=== PATIENT | female | born 2005 | race Caucasian/White ===

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

== ENCOUNTER 2024-01-25 14:22 | Emergency (ER) | payer OTHER ==
[~2024-01-25] VITALS: Ht 162.6 cm; Wt 76.9 kg
[2024-01-25 15:46] VITALS: BP 108/79
== END 2024-01-25 15:48 | disposition home or self-care (01) ==
LOC: ED 14:22
DX: J02.9 Acute pharyngitis, unspecified (principal)
CPT/HCPCS: 87081; 87651; 99283